=== PATIENT | male | born 1965 | race Hispanic/Latino ===

== ENCOUNTER 2023-05-03 10:06 | Emergency (ER) | payer BC, OTHER ==
[~2023-05-03] VITALS: Ht 170.2 cm; Wt 81.6 kg
[2023-05-03] MEDS ORDERED: CYCL10TA16 PO (10:45)
[2023-05-03] MEDS ORDERED: IBUP-2070 PO (10:45)
[2023-05-03] MEDS ORDERED: CYCLOBENZAPRINE HCL 10 MG TABLET PO ONE (11:00)
[2023-05-03] MEDS ORDERED: KETOROLAC 30MG VIAL (30MG/ML) IM ONE (11:00)
[2023-05-03 11:17] VITALS: BP 129/78
== END 2023-05-03 11:20 | disposition home or self-care (01) ==
LOC: EDH 10:06
DX: M54.31 Sciatica, right side (principal); M79.606 Pain in leg, unspecified; E78.00 Pure hypercholesterolemia, unspecified; Z98.890 Other specified postprocedural states
CPT/HCPCS: 99284; 96372; J1885